=== PATIENT | female | born 1980 | race Caucasian/White ===

== ENCOUNTER 2021-04-10 12:05 | Emergency (ER) | payer OTHER ==
[2021-04-10] MEDS ORDERED: DEPAKOTE 250MG250 MG PO (14:08)
== END 2021-04-10 14:58 | disposition home or self-care (01) ==
LOC: FER 12:05
DX: G40.909 Epilepsy, unspecified, not intractable, without status epilepticus (principal); F17.210 Nicotine dependence, cigarettes, uncomplicated; Z88.8 Allergy status to other drugs, medicaments and biological substances
CPT/HCPCS: 99283